=== PATIENT | female | born 1995 | race Caucasian/White ===

== ENCOUNTER 2017-06-04 20:04 | Emergency (ER) | payer SELFPAY ==
[~2017-06-04] VITALS: Ht 160 cm; Wt 97.5 kg
[~2017-06-04 20:04] MED LIST: PROAIR HFA8.5 GM INH; TIROSINT100 MCG PO
[2017-06-04] MEDS ORDERED: HIBICLENS118 ML TOP (20:49)
== END 2017-06-04 20:59 | disposition home or self-care (01) ==
LOC: ED 20:04
DX: L73.9 Follicular disorder, unspecified (principal); J45.909 Unspecified asthma, uncomplicated; E03.9 Hypothyroidism, unspecified; F17.200 Nicotine dependence, unspecified, uncomplicated; Z88.0 Allergy status to penicillin
CPT/HCPCS: 99283

== ENCOUNTER 2017-07-03 21:15 | Emergency (ER) | payer SELFPAY ==
[~2017-07-03] VITALS: Ht 160 cm; Wt 104.3 kg
[~2017-07-03 21:15] MED LIST changes: +HIBICLENS118 ML TOP
[2017-07-04] MEDS ORDERED: PERCOCET 5-3251 EACH PO (02:12)
[2017-07-04] MEDS ORDERED: FLOMAX0.4 MG PO (02:12)
== END 2017-07-04 02:33 | disposition home or self-care (01) ==
LOC: ED 21:15
DX: N13.2 Hydronephrosis with renal and ureteral calculous obstruction (principal); E03.9 Hypothyroidism, unspecified; J45.909 Unspecified asthma, uncomplicated; F17.200 Nicotine dependence, unspecified, uncomplicated; Z88.0 Allergy status to penicillin; Z79.899 Other long term (current) drug therapy
CPT/HCPCS: 74176; 80053; 81001; 84703; 85025; 96374; 96375; 99284; J1885; J2405

== ENCOUNTER 2018-07-15 00:36 | Emergency (ER) | payer OTHER ==
[~2018-07-15] VITALS: Ht 157.5 cm; Wt 104.3 kg
[~2018-07-15 00:36] MED LIST changes: +BACTRIM DS TAB1 EACH PO; +FLOMAX0.4 MG PO; +NORCO 5-325 TA1 EACH PO; +PERCOCET 5-3251 EACH PO
== END 2018-07-15 03:07 | disposition home or self-care (01) ==
LOC: ED 00:36
DX: Z04.41 Encounter for examination and observation following alleged adult rape (principal); F17.200 Nicotine dependence, unspecified, uncomplicated; Z88.0 Allergy status to penicillin
CPT/HCPCS: 84703; 99283

== ENCOUNTER 2020-01-25 18:03 | Emergency (ER) | payer OTHER ==
[~2020-01-25] VITALS: Ht 160 cm; Wt 97.5 kg
[~2020-01-25 18:03] MED LIST changes: +LEVOTHYROXINE100 MCG PO; +ONDANSETRON ODT8 MG PO
[2020-01-25] MEDS ORDERED: OMEPRAZOLE20 MG PO (22:02)
== END 2020-01-25 22:15 | disposition home or self-care (01) ==
LOC: ED 18:03
DX: K27.9 Peptic ulcer, site unspecified, unspecified as acute or chronic, without hemorrhage or perforation (principal); J45.909 Unspecified asthma, uncomplicated; Z88.2 Allergy status to sulfonamides
CPT/HCPCS: 76705; 80053; 81001; 83735; 85025; 96361; 99284-25; 99406; C9113; J2405; J7121

== ENCOUNTER 2022-01-14 09:40 | Emergency (ER) | payer OTHER ==
[~2022-01-14] VITALS: Ht 162.6 cm; Wt 127.5 kg
[~2022-01-14 09:40] MED LIST changes: +OMEPRAZOLE20 MG PO
--- OUTSIDE RECORDS SUMMARY | 2022-01-14 09:48 | XMS ---
PreManage Notification: ALAN MCCRACKEN Security Consumer Recruiter Events No recent Security Events currently on file CRITERIA MET - Group Notification CARE PROVIDERS VAL DHILLON Physician Camera Maker Current PHONE: Unknown Sonja has no Care Guidelines for this patient. EJose R VISIT COUNT (12 MO.) 1 DEMETRIA [facility] TOTAL 1 NOTE: Visits indicate total known visits. ED/UCC VISIT TRACKING (12 MO.) 01/14/2022 09:41 [facility] [place] TYPE: Emergency COMPLAINT: - HEMORROID ISSUE INPATIENT VISIT TRACKING (12 MO.) No inpatient visits to display in this time frame [id number]
[2022-01-14] MEDS ORDERED: EUTHYROX125 MCG PO (09:57)
[2022-01-14] MEDS ORDERED: METFORMIN HCL500 MG PO (09:57)
[2022-01-14] MEDS ORDERED: NITRO-BID1 INCH TD (18:19)
--- NOTE | 2022-01-16 10:56 | CONS ---
[facility] [address] [place], [place] [address] Signed DATE OF CONSULTATION: 01/14/2022 TIME: 6 p.m. CONSULTING PHYSICIAN: Hawa Hodge MD. PROBLEM: Anal pain, rectal bleeding, recent fever, history of COVID in past 2 weeks. HISTORY OF PRESENT ILLNESS: This morbidly obese 27-year-old white woman is a patient of Val Dhillon. For over a month, she has had severe anal pain with episodic rectal bleeding. Pain with bowel movements is extremely disabling. She has been unable to see Val Dhillon her primary provider due to access issues recently, and on that basis, presented to the emergency room where she was thoroughly evaluated by Dr. Pastor. Concern was maintained for possible perirectal abscess or similar problem. LABORATORY DATA: Lab studies showed a white count was normal at 7.5 and a normal hematocrit of 44.5. Her urinalysis was normal except for elevated protein of 30 and 7-11 red cells per high-power field, only 1+ bacteria, and a Chem profile essentially normal, though potassium is 3.4. A CT scan of the abdomen was performed which showed no sign of perirectal inflammatory change. Given her clinical symptoms, consultation was undertaken. REVIEW OF SYSTEMS: She has had a fever to as high as 102 she says. Notably she had COVID infection approximately 2 weeks ago. She said that the fever was one of her manifestations of the illness. She was not retested today that I am aware of. She has had no anal penetration that she admits to at this time. PHYSICAL EXAMINATION: GENERAL: This is a morbidly obese white woman who is somewhat tearful. VITAL SIGNS: A temperature of 98.6, pulse of 88, blood pressure 115/67, respiratory rate of 15. NECK: Trachea appears midline. ABDOMEN: Markedly obese. RECTAL: In the prone position, with Dr. Pastor in attendance careful inspection of perianal area shows excoriated area of the right lateral perianal area, but no sign of vesicles per se. She had moistness to the area for which she has used an Electronically Signed By: HAWA HODGE MD 01/16/22 1056 PATIENT NAME: ALAN MCCRACKEN CONSULTATION DATE OF : 89 REPORT #: [id number] PHYSICIAN: AHWA HODGE MD PCP: VAL DHILLON REPORT IS CONFIDENTIAL AND NOT TO BE RELEASED WITHOUT AUTHORIZATION [facility] [address], [place] [address] Signed [id number] preparation for her ailment. Careful examination shows a right lateral anal fissure. Exquisite tenderness to withdrawing of the anoderm and spasm precludes complete examination of the anal canal, but strong suspicion exists for an additional anterior anal fissure as noted. Palpation of the soft tissue around the anal canal shows no tenderness, thus less likely to have any sign of occult abscess. ASSESSMENT: Most likely this represents significant symptoms from an anal fissure. Discussed the pathophysiology of this problem with her. Recommendation would be made for a high-fiber supplement such as Metamucil or Citrucel (powder not pills) hot sitz baths which will bring symptomatic relief, and either nitroglycerin ointment or diltiazem ointment applied b.i.d. In many cases acute fissure problems will resolve with this approach. If not, exam under anesthesia and lateral internal sphincterotomy would be a consideration I am uncertain of her access to diltiazem ointment as it requires a formulating pharmacy capacity so nitroglycerin ointment might be an option though the issue of headache is acknowledged. Discussed this with her. We will review this with Dr. Silva as well. MD TATIANA Donato/MODL /[id number] cc: MD Val GOOD PA-C Copies: ~ Electronically Signed By: HAWA HODGE MD 01/16/22 1056 PATIENT NAME: ALAN MCCRACKEN CONSULTATION DATE OF : [birth year] REPORT #: [id number] PHYSICIAN: HAWA HODGE MD PCP: VAL DHILLON PAC REPORT IS CONFIDENTIAL AND NOT TO BE RELEASED WITHOUT AUTHORIZATION
== END 2022-01-14 18:24 | disposition home or self-care (01) ==
LOC: ED 09:40
DX: K60.2 Anal fissure, unspecified (principal); J45.909 Unspecified asthma, uncomplicated; F17.200 Nicotine dependence, unspecified, uncomplicated; Z88.0 Allergy status to penicillin; Z79.899 Other long term (current) drug therapy; Z79.84 Long term (current) use of oral hypoglycemic drugs
CPT/HCPCS: 36415; 74177; 80048; 81001; 84703; 85025; 96375; 96376; 99284-25; J1170; J1885; J2405

== ENCOUNTER 2022-02-16 13:20 | Emergency (ER) | payer OTHER ==
[~2022-02-16] VITALS: Ht 162.6 cm; Wt 127.5 kg
[~2022-02-16 13:20] MED LIST changes: +EUTHYROX125 MCG PO; +METFORMIN HCL500 MG PO; +NITRO-BID1 INCH TD
--- OUTSIDE RECORDS SUMMARY | 2022-02-16 13:26 | XMS ---
PreManage Notification: ALAN MCCRACKEN Security Jd Edwards Developer Events No recent Security Events currently on file CRITERIA MET - Group Notification CARE PROVIDERS VAL DHILLON Physician Grief Counsellor Current PHONE: Unknown Sonja has no Care Guidelines for this patient. EJose R VISIT COUNT (12 MO.) 2 DEMETRIA Trevino TOTAL 2 NOTE: Visits indicate total known visits. ED/UCC VISIT TRACKING (12 MO.) 02/16/2022 13:20 [facility] [place] TYPE: Emergency COMPLAINT: - SYNCOPE 01/14/2022 09:41 [facility] [place] TYPE: Emergency COMPLAINT: - HEMORROID ISSUE DIAGNOSES: - Allergy status to penicillin - Other custodial (current) drug therapy - Nicotine dependence, unspecified, uncomplicated - Unspecified asthma, uncomplicated - manager terminal (current) use of oral hypoglycemic drugs - Melena - Anal fissure, unspecified INPATIENT VISIT TRACKING (12 MO.) No inpatient visits to display in this time frame [id number]
[2022-02-16] MEDS ORDERED: AMITRIPTYLINE H10 MG PO (13:42)
--- NOTE | 2022-02-16 17:19 | EKG ---
[facility] [address] [facility] [place], [place] [address] Signed Normal sinus rhythm Normal ECG No previous ECGs available Confirmed by RABIA MORELAND MD ([id number]) on 02/16/2022 5:19:26 PM Electronically Signed By: RABIA MORELAND MD 02/16/22 1719 PATIENT NAME: ALAN MCCRACKEN Electrocardiogram DATE OF : [birth year] PHYSICIAN: RABIA MORELAND MD REPORT #: [id number] REPORT IS CONFIDENTIAL AND NOT TO BE RELEASED WITHOUT AUTHORIZATION
== END 2022-02-16 17:30 | disposition home or self-care (01) ==
LOC: ED 13:20
DX: R55 Syncope and collapse (principal); J45.909 Unspecified asthma, uncomplicated; F17.200 Nicotine dependence, unspecified, uncomplicated; Z88.0 Allergy status to penicillin; Z79.84 Long term (current) use of oral hypoglycemic drugs; Z79.899 Other long term (current) drug therapy
CPT/HCPCS: 36415; 70450; 71045; 80053; 81001; 84484; 84703; 85025; 85379; 93005; 93010; 96374; 99284-25; J1200; J2060

== ENCOUNTER 2022-02-16 19:29 | Emergency (ER) | payer OTHER ==
[~2022-02-16] VITALS: Ht 162.6 cm; Wt 127.5 kg
[~2022-02-16 19:29] MED LIST changes: +AMITRIPTYLINE H10 MG PO
--- OUTSIDE RECORDS SUMMARY | 2022-02-16 19:36 | XMS ---
PreManage Notification: ALAN MCCRACKEN Security Precision Instrument Maker Events No recent Security Events currently on file CRITERIA MET - [facility] - 2 Visits in 30 Days - Group Notification CARE PROVIDERS VAL DHILLON Physician Current PHONE: Unknown Sonja has no Care Guidelines for this patient. [place] VISIT COUNT (12 MO.) 3 [facility] TOTAL 3 NOTE: Visits indicate total known visits. ED/UCC VISIT TRACKING (12 MO.) 02/16/2022 19:30 [facility] [place] TYPE: Emergency COMPLAINT: - DIZZINESS 02/16/2022 13:20 [facility] [place] TYPE: Emergency COMPLAINT: - SYNCOPE 01/14/2022 09:41 [facility] [place] TYPE: Emergency COMPLAINT: - HEMORROID ISSUE DIAGNOSES: - Allergy status to penicillin - Other bed bug exterminator (current) drug therapy - Nicotine dependence, unspecified, uncomplicated - Unspecified asthma, uncomplicated - termite treater (current) use of oral hypoglycemic drugs - Melena - Anal fissure, unspecified INPATIENT VISIT TRACKING (12 MO.) No inpatient visits to display in this time frame [id number]
--- NOTE | 2022-02-18 14:53 | EKG ---
[facility] [address] [facility] [place], [place] [address] Signed Normal sinus rhythm Normal ECG When compared with ECG of 16-FEB-2022 13:32, No significant change was found Confirmed by RABIA OMRELAND MD ([id number]) on 02/18/2022 2:53:40 PM Electronically Signed By: RABIA OMRELAND MD 02/18/22 1453 PATIENT NAME: ALAN MCCRACKEN Electrocardiogram DATE OF : [birth year] PHYSICIAN: RABIA MORELAND MD REPORT #: [id number] REPORT IS CONFIDENTIAL AND NOT TO BE RELEASED WITHOUT AUTHORIZATION
== END 2022-02-16 21:20 | disposition home or self-care (01) ==
LOC: ED 19:29
DX: R55 Syncope and collapse (principal); R00.2 Palpitations; J45.909 Unspecified asthma, uncomplicated; G43.909 Migraine, unspecified, not intractable, without status migrainosus; Z86.718 Personal history of other venous thrombosis and embolism; F17.200 Nicotine dependence, unspecified, uncomplicated; Z88.0 Allergy status to penicillin; Z79.84 Long term (current) use of oral hypoglycemic drugs; Z79.899 Other long term (current) drug therapy
CPT/HCPCS: 36415; 84484; 93005; 93010; 96374; 99284-25; J2405; J7121

== ENCOUNTER 2023-07-12 14:08 | Emergency (ER) | payer OTHER ==
[~2023-07-12] VITALS: Ht 162.6 cm; Wt 124.1 kg
--- OUTSIDE RECORDS SUMMARY | ~2023-07-12 | XMS | Continuity of Care Document ---
Demographics + + + | Address | [address] | | | [place] [address] | + + + | Preferred Language | Unknown | + + + | Marital Status | Polygamous | + + + | Mandaeism Affiliation | Unknown | + + + | Race | White | + + + | Ethnic Group | Unknown | + + + Author + + + | Author | [facility] | + + + | Organization | [facility] | + + + | Address | [address] | | | [place] [address] | + + + | Phone | | + + + Care Team Providers + + + + | Care Sporting Goods Salesperson Name | Role | Phone | + + + + Unavailable | Unavailable | + + + + Unavailable | Unavailable | + + + + Unavailable | Unavailable | + + + + Allergies and Intolerances + + + + + + | date | description | facility | reaction | severity | + + + + + + | (no date) | Penicillins | [facility] | (no reaction) | (no severity) | + + + + + + | (no date) | NO ALLERGY | [facility] | (no reaction) | (no severity) | | | INFORMATION ON | Medical Center | | | | | FILE | Hospital | | | + + + + + + | (no date) | PENICILLIN | [facility] [place] | (no reaction) | (no severity) | | | | Medical Center | | | | | | Hospital | | | + + + + + + Encounters No information. Functional Status No information. Immunizations No information. Medications + + + + | date | description | facility | + + + + | 2021-06-22 00:00 | [id number] actuat | [facility] | | | albuterol 0.09 mg/actuat | [facility] | | | metered dose inhaler | | + + + + | 2021-12-27 00:00 | escitalopram 10 mg oral | [facility] | | | tablet | [facility] | + + + + | 2021-12-27 00:00 | lexapro 10 mg oral tablet | [facility] | | | | [facility] | + + + + | 2022-05-03 00:00 | levothyroxine sodium 0.15 | [facility] | | | mg oral tablet [euthyrox] | [facility] | + + + + Problems + + + + | date | description | facility | + + + + | 2022-06-02 12:32:34 | Syncope and collapse | [facility] | | | | [facility] | + + + + | 2023-06-30 09:00 | NEOPLASM OF UNCERTAIN | [facility] | | | [facility] | | + + + + | 2023-07-12 11:00 | NEOPLASM OF UNCERTAIN | [facility] | | | BEHAVIOR OF SKIN | | + + + + Procedures No information. Results/Labs No information. Social History + + + + | date | description | facility | + + + + | 2016-11-27 00:00 | Smokes tobacco daily | [facility] | | | | [facility] | + + + + | 2022-06-02 00:00 | Smokes tobacco daily | [facility] | | | | [facility] | + + + + Vital Signs + + +---------+---------+ | date | measurement | value | units | + + +---------+---------+ | 2022-06-02 00:00 | BMI | 48.47 | kg/m2 | + + +---------+---------+ | 2022-06-02 00:00 | BP_diastolic | 70 | mmHg | + + +---------+---------+ | 2022-06-02 00:00 | BP_systolic | 120 | mmHg | + + +---------+---------+ | 2022-06-02 00:00 | heart_rate | 72 | /min | + + +---------+---------+ | 2022-06-02 00:00 | height_metric | 161.3 | cm | + + +---------+---------+ | 2022-06-02 00:00 | height_standard | 63.5 | in | + + +---------+---------+ | 2022-06-02 00:00 | weight_metric | 126.1 | kg | + + +---------+---------+ | 2022-06-02 00:00 | weight_standard | 278 | lb | + + +---------+---------+"
--- OUTSIDE RECORDS SUMMARY | 2023-07-12 14:11 | XMS ---
PreManage Notification: ALAN MCCRACKEN Security Seals Engraver Events No recent Security Events currently on file CRITERIA MET - Group Notification - PDMP CARE PROVIDERS -[place]- Dentist: Part Maker [facility] PHONE: [phone] VAL DHILLON Physician 07/16/2018-Current PHONE: Unknown Sonja has no Care Guidelines for this patient. [place] VISIT COUNT (12 MO.) 1 DEMETRIA Trevino TOTAL 1 NOTE: Visits indicate total known visits. ED/UCC VISIT TRACKING (12 MO.) 07/12/2023 14:09 [facility] [place] TYPE: Emergency COMPLAINT: - R ARM SWOLLEN/RED/NUMBNESS/PAIN INPATIENT VISIT TRACKING (12 MO.) No inpatient visits to display in this time frame [id number]
[2023-07-12 15:53] VITALS: BP 164/90
== END 2023-07-12 15:53 | disposition home or self-care (01) ==
LOC: ED 14:08
DX: T80.89XA Other complications following infusion, transfusion and therapeutic injection, initial encounter (principal); X58.XXXA Exposure to other specified factors, initial encounter; J45.909 Unspecified asthma, uncomplicated; G43.909 Migraine, unspecified, not intractable, without status migrainosus; F17.200 Nicotine dependence, unspecified, uncomplicated; Z86.718 Personal history of other venous thrombosis and embolism; Z79.01 Long term (current) use of anticoagulants; Z88.0 Allergy status to penicillin; Z79.84 Long term (current) use of oral hypoglycemic drugs; Z79.890 Hormone replacement therapy; Z79.899 Other long term (current) drug therapy
CPT/HCPCS: 99283

== ENCOUNTER 2023-09-12 10:31 | Emergency (ER) | payer OTHER ==
[~2023-09-12] VITALS: Ht 162.6 cm; Wt 123.6 kg
--- OUTSIDE RECORDS SUMMARY | 2023-09-12 10:34 | XMS ---
PreManage Notification: ALAN MCCRACKEN Security Head Resident Events No recent Security Events currently on file CRITERIA MET - Group Notification - PDMP - [facility] - 2 Visits in 30 Days CARE PROVIDERS VAL DHILLON Physician 07/16/2018-Current PHONE: Unknown -[place]- Dentist: Discharge Specialist [facility] PHONE: [phone] Sonja has no Care Guidelines for this patient. [place] VISIT COUNT (12 MO.) 3 [facility] TOTAL 3 NOTE: Visits indicate total known visits. ED/UCC VISIT TRACKING (12 MO.) 09/12/2023 10:32 [facility] [place] TYPE: Emergency COMPLAINT: - R FLANK/ABD PAIN, VOMITING, BLACK/TARRY STOOL 09/11/2023 17:43 [facility] [place] TYPE: Emergency COMPLAINT: - ABDOMINAL PAIN 07/12/2023 14:09 [facility] [place] [place] TYPE: Emergency COMPLAINT: - R ARM SWOLLEN/RED/NUMBNESS/PAIN DIAGNOSES: - Allergy status to penicillin - Exposure to other specified factors, initial encounter - Hormone replacement therapy - terminologist (current) use of anticoagulants - terminologist (current) use of oral hypoglycemic drugs - Migraine, unspecified, not intractable, without status migrainosus - Nicotine dependence, unspecified, uncomplicated - Other complications following infusion, transfusion and therapeutic injection, initial encounter - Other fpc (current) drug therapy - Other specified soft tissue disorders - Personal history of other venous thrombosis and embolism - Unspecified asthma, uncomplicated INPATIENT VISIT TRACKING (12 MO.) No inpatient visits to display in this time frame [id number]
[2023-09-12] MEDS ORDERED: LEVOTHYROXINE175 MCG PO (10:51)
[2023-09-12] MEDS ORDERED: METHYLPHENIDATE27 MG PO (10:52)
[2023-09-12] MEDS ORDERED: ONDANSETRON ODT8 MG PO (10:52)
[2023-09-12] MEDS ORDERED: DICLOFENAC SODI75 MG PO (10:52)
[2023-09-12] MEDS ORDERED: CLINDAMYCIN PHO60 ML TOP (10:52)
[2023-09-12] MEDS ORDERED: SPIRONOLACTONE50 MG PO (10:52)
[2023-09-12] MEDS ORDERED: VENTOLIN HFA18 GM INH (10:53)
[2023-09-12] MEDS ORDERED: SUMATRIPTAN SU100 MG PO (10:53)
[2023-09-12 11:20] LABS: EOSINOPHILS 1.1 % (0-6); HEMATOCRIT 41.5 % (35.0-50.0); HEMOGLOBIN 14.1 g/dL (12.0-18.0); LYMPHOCYTES 27.3 % (24-44); MCH 30.7 (27-36); MCHC 33.9 g/dl (30-36); MCV 90.7 fl (81-99); MONOCYTES 4.8 % (0-12); NEUTROPHILS 65.8 % (39-80); PLATELET COUNT 276 K/uL (140-440); RBC 4.57 M/ul (4.3-5.7); RDW 13.8 (10.5-15.0)
[2023-09-12 11:35] LABS: ALBUMIN 4.1 g/dL (3.4-5.0); ALBUMIN/GLOBULIN RATIO 1.24 (1.1-2.4); ANION GAP 16.6 (7-21); BILIRUBIN, TOTAL 0.5 ng/dL (0.2-1.0); BUN/CREATININE RATIO 9.89 (6.0-28.6); CALCIUM 9.3 mg/dL (8.5-10.1); CREATININE, SERUM 0.91 mg/dL (0.55-1.02); POTASSIUM 3.6 mmol/L (3.5-5.1); PROTEIN, TOTAL 7.4 g/dL (6.4-8.2)
[2023-09-12 12:22] LABS: BILIRUBIN, URINE NEGATIVE (negative); BLOOD/HGB, URINE NEGATIVE (Negative); KETONE, URINE TRACE (Negative); LEUK ESTERASE, URINE NEGATIVE (negative); NITRITE, URINE NEGATIVE (negative); PH, URINE 6.5 (5-7)
[2023-09-12 14:28] LABS: VALPROIC ACID 88 ug/mL (50-100)
[2023-09-12 15:16] VITALS: BP 105/65
== END 2023-09-12 15:16 | disposition left against medical advice (07) ==
LOC: ED 10:31
PROVIDERS: Emergency Medicine
DX: R10.11 Right upper quadrant pain (principal); Z53.29 Procedure and treatment not carried out because of patient's decision for other reasons; F17.200 Nicotine dependence, unspecified, uncomplicated; Z88.0 Allergy status to penicillin; Z79.890 Hormone replacement therapy; Z79.899 Other long term (current) drug therapy; Z79.51 Long term (current) use of inhaled steroids
CPT/HCPCS: 36415; 76705; 80053; 80164; 81003; 83690; 84703; 85025; J1885

== ENCOUNTER 2024-03-22 15:03 | Emergency (ER) | payer OTHER ==
[~2024-03-22] VITALS: Ht 162.6 cm; Wt 130.5 kg
[~2024-03-22 15:03] MED LIST changes: +CLINDAMYCIN PHO60 ML TOP; +DICLOFENAC SODI75 MG PO; +LEVOTHYROXINE175 MCG PO; +METHYLPHENIDATE27 MG PO; +SPIRONOLACTONE50 MG PO; +SUMATRIPTAN SU100 MG PO; +VENTOLIN HFA18 GM INH
--- OUTSIDE RECORDS SUMMARY | 2024-03-22 15:04 | XMS ---
PreManage Notification: ALAN MCCRACKEN Security Diesel Powerplant Supervisor Events 1 event(s) in the past 18 months Most recent security events: Elopement at [facility] 09/12/2023 10:32 - Patient eloped with IV in place. - Patient eloped before treatment completed. - Patient with suicidal and/or homicidal ideations eloped. Details: Patient left AMA.
[2024-03-22] MEDS ORDERED: MINOCYCLINE HC100 M1 PO (15:33)
[2024-03-22] MEDS ORDERED: HYDROCODON-ACE1 EA10 PO (17:07)
[2024-03-22] MEDS ORDERED: CLEOCIN HCL300 MG PO (17:07)
[2024-03-22] MEDS ORDERED: clindamycin HCL 300 MG CAP PO ONE (17:15)
[2024-03-22 17:20] VITALS: BP 158/99
== END 2024-03-22 17:21 | disposition home or self-care (01) ==
LOC: ED 15:03
DX: K08.89 Other specified disorders of teeth and supporting structures (principal); F17.200 Nicotine dependence, unspecified, uncomplicated
CPT/HCPCS: 64400; 99282-25

== ENCOUNTER 2024-08-06 15:22 | Emergency (ER) | payer OTHER ==
[~2024-08-06] VITALS: Ht 162.6 cm; Wt 123.3 kg
[~2024-08-06 15:22] MED LIST changes: +CLEOCIN HCL300 MG PO; +HYDROCODON-ACE1 EA10 PO; +MINOCYCLINE HC100 M1 PO
--- OUTSIDE RECORDS SUMMARY | 2024-08-06 15:29 | XMS ---
PreManage Notification: ALAN MCCRACKEN Security Forest Fire Fighters Dispatcher Events 1 event(s) in the past 18 months Most recent security events: Elopement at [facility] 09/12/2023 10:32 - Patient eloped with IV in place. - Patient eloped before treatment completed. - Patient with suicidal and/or homicidal ideations eloped. Details: Patient left AMA.
[2024-08-06] MEDS ORDERED: ondansetron HCL 4 MG/2 ML VIAL IV ONE (18:30)
[2024-08-06] MEDS ORDERED: SODIUM CHLORIDE 0.9% 1,000 ML IV ONE (18:30)
[2024-08-06 18:42] LABS: BASOPHILS 0.8 % (0-2); EOSINOPHILS 1.6 % (0-6); HEMOGLOBIN 14.6 g/dL (12.0-18.0); LYMPHOCYTES 29.9 % (24-44); MCV 88.3 fl (81-99); MONOCYTES 5.4 % (0-12); NEUTROPHILS 62.3 % (39-80); PLATELET COUNT 269 K/uL (140-440); RBC 4.88 M/ul (4.3-5.7); RDW 13.6 (10.5-15.0)
[2024-08-06 19:00] LABS: ALBUMIN/GLOBULIN RATIO 1.14 (1.1-2.4); ANION GAP 14.7 (7-21); BILIRUBIN, TOTAL 0.4 ng/dL (0.2-1.0); BUN/CREATININE RATIO 12.35 (6.0-28.6); CALCIUM 9.3 mg/dL (8.5-10.1); CREATININE, SERUM 0.89 mg/dL (0.55-1.02); POTASSIUM 3.7 mmol/L (3.5-5.1); PROTEIN, TOTAL 7.5 g/dL (6.4-8.2)
[2024-08-06 19:18] LABS: BILIRUBIN, URINE POSITIVE (negative); BLOOD/HGB, URINE NEGATIVE (Negative); KETONE, URINE NEGATIVE (Negative); LEUK ESTERASE, URINE NEGATIVE (negative); NITRITE, URINE NEGATIVE (negative)
[2024-08-06 20:07] VITALS: BP 109/63
== END 2024-08-06 20:09 | disposition home or self-care (01) ==
LOC: ED 15:22
PROVIDERS: Emergency Medicine
DX: K52.9 Noninfective gastroenteritis and colitis, unspecified (principal); J45.909 Unspecified asthma, uncomplicated; G43.909 Migraine, unspecified, not intractable, without status migrainosus; F17.210 Nicotine dependence, cigarettes, uncomplicated; Z86.718 Personal history of other venous thrombosis and embolism; Z88.0 Allergy status to penicillin; Z79.2 Long term (current) use of antibiotics; Z79.890 Hormone replacement therapy; Z79.899 Other long term (current) drug therapy
CPT/HCPCS: 36415; 74177; 80053; 81003; 83690; 84703; 85025; 96361; 99284-25; J2405; J7030; Q9967